=== PATIENT | male | born 1995 | race Caucasian/White ===

== ENCOUNTER 2019-02-09 02:49 | Emergency (ER) | payer OTHER ==
[~2019-02-09] VITALS: Ht 180.3 cm; Wt 99.8 kg
== END 2019-02-09 04:47 | disposition home or self-care (01) ==
LOC: ER 02:49
DX: T15.01XA Foreign body in cornea, right eye, initial encounter (principal); Z88.0 Allergy status to penicillin
CPT/HCPCS: 65222; 99283-25